=== PATIENT | female | born 1965 | race Hispanic/Latino ===

== ENCOUNTER 2017-01-10 13:11 | Outpatient (CLI) | payer BC, OTHER ==
--- NOTE | 2017-01-11 13:40 | Mammography Report ---
BILATERAL DIGITAL SCREENING MAMMOGRAM with CAD: 01/10/17 13:11:00 CLINICAL: Routine screening. COMPARISON:11/08/11 FINDINGS: The breasts are almost entirely fatty. No mass, architectural distortion or suspicious calcifications. IMPRESSION: No mammographic evidence of malignancy. BI-RADS CATEGORY: 1 - - Negative RECOMMENDATION: Routine mammographic screening in one year. COMMENT: Patient follow-up letters are generated by our [employer] application.
== END 2017-01-10 13:12 | disposition home or self-care (01) ==
LOC: SPVWC 13:11
PROVIDERS: ATTEND Family Medicine
DX: Z12.31 Encounter for screening mammogram for malignant neoplasm of breast (principal)
CPT/HCPCS: 77067; G0202

== ENCOUNTER 2017-08-22 11:41 | Outpatient (CLI) | payer OTHER ==
--- NOTE | 2017-08-22 15:51 | XRay Report ---
XRAY BILATERAL KNEE THREE VIEWS EACH: 08/22/17 11:41:00 CLINICAL: Bilateral knee pain. FINDINGS: Right: Normal bones and joints. No fracture or dislocation. No joint effusion. Normal soft tissues. Left: Normal bones and joints. No fracture or dislocation. No joint effusion. Normal soft tissues. IMPRESSION: Normal.
== END 2017-08-22 11:42 | disposition home or self-care (01) ==
LOC: SPVIMAG 11:41
PROVIDERS: ATTEND Orthopaedic Surgery
DX: M25.561 Pain in right knee (principal); M25.562 Pain in left knee

== ENCOUNTER 2017-10-05 11:29 | Outpatient (CLI) | payer OTHER ==
--- NOTE | 2017-10-05 12:05 | XRay Report ---
BILATERAL SHOULDER RADIOGRAPHS INDICATION: Bilateral shoulder pain. COMPARISON: None similar. FINDINGS: Frontal and Y views of the both shoulders, 3 projections demonstrate normal humeral head contours, well positioned against the glenoid. Normal acromioclavicular joints. Preserved scapular contours. Slightly downsloping acromions. Normal visualized soft tissues, bilateral ribs and lung. Thoracic dextroscoliosis possible. CONCLUSION: No acute bilateral shoulder radiographic abnormality, as described. Thank you for the opportunity to participate in this patient's care.
== END 2017-10-05 11:30 | disposition home or self-care (01) ==
LOC: SPVIMAG 11:29
PROVIDERS: ATTEND Orthopaedic Surgery
DX: M25.511 Pain in right shoulder (principal); M25.512 Pain in left shoulder